=== PATIENT | female | born 1985 | race Caucasian/White ===

== ENCOUNTER 2019-02-28 08:50 | Emergency (ER) | payer OTHER ==
[2019-02-28] MEDS ORDERED: Ondansetron PF 4 MG/2 ML Vial ONE (09:24)
[2019-02-28] MEDS ORDERED: Ketorolac Tromethamine 30 MG/ML VIAL ONE (09:24)
[2019-02-28 09:52] LABS: #Basophils 0.1 thou/uL (0.0-0.2); #Eosinphils 0.2 thou/uL (0.0-0.7); #Lymphocytes 0.9 thou/uL (1.20-3.40); #Monocytes 0.5 thou/uL (0.11-0.59); #Neutrophils 8.3 thou/uL (1.40-6.50); %Basophils 0.6 % (0.0-1.0); %Eosinophils 1.6 % (0.0-10.0); %Lymphocytes 9.3 % (21.0-51.0); %Monocytes 4.8 % (0.0-10.0); %Neutrophils 83.7 % (42.0-75.0); Hemoglobin 13.5 g/dL (12.0-16.0); Mean Corpuscular HGB CONC 31.9 g/dL (32.0-36.0); Mean Corpuscular Hemoglobin 30.9 pg (27.0-31.0); Mean Corpuscular Volume 96.8 fL (78.0-98.0); Mean Platelet Volume 6.3 fL (7.4-10.4); Platelet Count 243 thou/uL (130-400); RBC Distribution Width 12.9 % (11.5-14.5); Red Blood Cell (RBC) Count 4.38 mill/uL (4.20-5.40); White Blood Cell (WBC) Count 9.9 thou/uL (4.8-10.8)
[2019-02-28] MEDS ORDERED: Fentanyl 100 MCG/2 ML VIAL ONE (10:07)
[2019-02-28 10:09] LABS: Bilirubin Negative (Negative); Blood, Urine Large (Negative); Clarity Cloudy (Clear); Glucose, Urine (Dipstick) Negative (Negative); Leukocyte Large (Negative); Nitrite Negative (Negative); Protein, Urine (Dipstick) 100 mg/dL (Neg-Trace); Urobilinogen 0.2 mg/dL (Less than 2)
[2019-02-28 10:14] LABS: Pregnancy Test - Urine (BHCG) Negative (Negative); Pregu Control Background? CLEAR/WHITE (CLR/WHITE); Pregu Control Bar Appear? YES (CONTROL BAR); Specific Gravity 1.015 (1.002-1.036)
[2019-02-28 10:19] LABS: Amphetamine Not Detected (NotDetected); Barbiturates Screen Not Detected (NotDetected); Benzodiazepine Screen Not Detected (NotDetected); Cocaine Metabolite Screen Not Detected (NotDetected); Medtox Control Line Valid? VALID (VALID); Methadone Not Detected (NotDetected); Methamphetamine Not Detected (NotDetected); Opiate Screen Detected (NotDetected); Oxycodone Screen Not Detected (NotDetected); Phencyclidine (PCP) Not Detected (NotDetected); THC/Cannabinoid Screen Not Detected (NotDetected); Tricyclic Screen Not Detected (NotDetected)
[2019-02-28 10:22] LABS: Bacteria/HPF 2+ HPF (None Seen); RBC/HPF 21-50 HPF (0-3); Squamous Epithelial 0-3 HPF (0-3); WBC/HPF Greater Than 50 HPF (0-3); Yeast-Budding 1+ HPF (None Seen)
[2019-02-28 10:31] LABS: BUN (Urea Nitrogen) 10 mg/dL (7.0-18.7); Calc. Creatinine Clearance 0 mL/min (70-130); Carbon Dioxide 15 mmol/L (22-29); Chloride 109 mmol/L (98-107); Estimated GFR-MDRD 89; Glucose 92 mg/dL (70-105); Sodium 138 mmol/L (136-145)
[2019-02-28 10:32] LABS: ALT (SGPT) 19 U/L (8-55); AST (SGOT) 28 U/L (5-34); Albumin 3.9 g/dL (3.5-5.0); Alkaline Phosphatase 56 U/L (40-110); Anion Gap 16 mmol/L (10-20); Bilirubin, Total 0.5 mg/dL (0.2-1.2); Calcium 9.5 mg/dL (7.8-10.44); Globulin 3.2 g/dL (2.4-3.5); Protein, Total 7.1 g/dL (6.0-8.3)
[2019-02-28] MEDS ORDERED: Sulfameth/Trimethoprim DS 800-160mg TAB ONE (10:36)
[2019-02-28] MEDS ORDERED: HYDROcodone/Acetaminophen 10/325 mg Tablet ONE (11:21)
--- NOTE | 2019-02-28 19:19 | CT ---
CT ABDOMEN AND PELVIS WITHOUT CONTRAST: 02/28/[address] was performed for evaluation in this patient. The liver, spleen, pancreas, gallbladder, adrenal glands, kidneys, and abdominal aorta appear normal within the limitations of a noncontrast study. There was no sign of renal calculi or hydronephrosis. No ureteral calculi were seen. There is no distention of bowel. There is no gross bowel wall thickening. No free air of free fluid w as detected. CT of the pelvis shows some mild concentric thickening of the urinary bladder wall. The possibility of cystitis is raised. No adnexal masses are seen. Another finding is a central disc prot rusion at L4-L5 which impinges upon the thecal sac. IMPRESSION: 1. No acute intra-abdominal findings such as urinary tract calculi. 2. Possible mild thickening of the urinary bladder. Consider cystitis. 3. Central disc protrusion at L4-L5. POS: HOME
== END 2019-02-28 12:35 | disposition home or self-care (01) ==
LOC: BURERS 08:50
DX: N30.00 Acute cystitis without hematuria (principal); J45.909 Unspecified asthma, uncomplicated; Z79.899 Other long term (current) drug therapy; Z79.51 Long term (current) use of inhaled steroids
CPT/HCPCS: 36415; 74176; 80053; 80306; 81003; 81015; 81025; 85025; 87077; 87086; 87186; 96361; 96374; 96375; J1885; J2405; J3010

== ENCOUNTER 2019-11-12 19:56 | Emergency (ER) | payer OTHER ==
[2019-11-12] MEDS ORDERED: Ketorolac Tromethamine 30 MG/ML VIAL ONE (20:59)
[2019-11-12] MEDS ORDERED: Dexamethasone 4 MG TAB ONE (21:20)
--- NOTE | 2019-11-13 10:17 | RAD ---
SACRUM AND COCCYX: DATE: 11/12/2019. FINDINGS: Three views indicate no definite fracture. All bones appeared intact. The arcuate lines of the sacr um appear normal. There is a part of the right side of the sacrum that has a slightly acute angle to it just below the bottom of the right SI joint on one view, but this area looks completely normal on the other. I doubt there is a fracture here. The coccyx appears intact. The SI joints appear norm al. IMPRESSION: No definite acute findings. If pain persists, then a CT might be needed for finer detail. POS: HOME
== END 2019-11-12 21:22 | disposition home or self-care (01) ==
LOC: BURERS 19:56
DX: S30.0XXA Contusion of lower back and pelvis, initial encounter (principal); J45.909 Unspecified asthma, uncomplicated; Z79.891 Long term (current) use of opiate analgesic; Z79.899 Other long term (current) drug therapy; W01.198A Fall on same level from slipping, tripping and stumbling with subsequent striking against other object, initial encounter
CPT/HCPCS: 72220; 96372; J1885; J8540

== ENCOUNTER 2020-05-19 22:06 | Emergency (ER) | payer OTHER ==
[2020-05-19 22:52] LABS: #Basophils 0.1 thou/uL (0.0-0.2); #Eosinphils 0.2 thou/uL (0.0-0.7); #Lymphocytes 1.4 thou/uL (1.20-3.40); #Monocytes 0.5 thou/uL (0.11-0.59); #Neutrophils 2.9 thou/uL (1.40-6.50); %Basophils 1.5 % (0.0-1.0); %Eosinophils 4.5 % (0.0-10.0); %Lymphocytes 28.2 % (21.0-51.0); %Neutrophils 56.7 % (42.0-75.0); Hemoglobin 12.1 g/dL (12.0-16.0); Mean Corpuscular HGB CONC 33.4 g/dL (32.0-36.0); Mean Corpuscular Hemoglobin 31.7 pg (27.0-31.0); Mean Corpuscular Volume 94.7 fL (78.0-98.0); Mean Platelet Volume 6.6 fL (7.4-10.4); Platelet Count 236 thou/uL (130-400); RBC Distribution Width 12.4 % (11.5-14.5); Red Blood Cell (RBC) Count 3.82 mill/uL (4.20-5.40)
[2020-05-19 23:06] LABS: ALT (SGPT) 18 U/L (8-55); AST (SGOT) 20 U/L (5-34); Albumin 4.1 g/dL (3.5-5.0); Alkaline Phosphatase 48 U/L (40-110); Anion Gap 14 mmol/L (10-20); BUN (Urea Nitrogen) 10 mg/dL (7.0-18.7); Bilirubin, Total Less than 0.2 mg/dL (0.2-1.2); Calc. Creatinine Clearance 0 mL/min (70-130); Calcium 9.1 mg/dL (7.8-10.44); Carbon Dioxide 22 mmol/L (22-29); Chloride 110 mmol/L (98-107); Glucose 101 mg/dL (70-105); Potassium 4.1 mmol/L (3.5-5.1); Protein, Total 7.1 g/dL (6.0-8.3); Sodium 142 mmol/L (136-145)
== END 2020-05-19 22:09 | disposition home or self-care (01) ==
LOC: BURERS 22:06
DX: R42 Dizziness and giddiness (principal); J45.909 Unspecified asthma, uncomplicated; Z79.51 Long term (current) use of inhaled steroids
CPT/HCPCS: 36415; 80053; 85025; 93005

== ENCOUNTER 2021-01-19 13:48 | Emergency (ER) | payer OTHER | END 2021-01-19 14:50 | disposition home or self-care (01) | LOC: BURERS 13:48 | DX: U07.1 COVID-19 (principal); M94.0 Chondrocostal junction syndrome [Tietze]; J45.909 Unspecified asthma, uncomplicated | CPT/HCPCS: 71045 ==

== ENCOUNTER 2021-01-21 12:27 | Emergency (ER) | payer OTHER | END 2021-01-21 13:10 | disposition home or self-care (01) | LOC: BURERS 12:27 | DX: U07.1 COVID-19 (principal); J06.9 Acute upper respiratory infection, unspecified; J45.909 Unspecified asthma, uncomplicated | CPT/HCPCS: 99283 ==

== ENCOUNTER 2021-04-30 14:35 | Emergency (ER) | payer OTHER, MEDICAID ==
[2021-04-30] MEDS ORDERED: Acetaminophen 500 MG TAB ONE (14:55)
[2021-04-30] MEDS ORDERED: Albuterol Sulfate 2.5 mg/0.5 ml Neb ONE (15:02)
[2021-04-30] MEDS ORDERED: Ketorolac Tromethamine 30 MG/ML VIAL ONE (15:14)
[2021-04-30] MEDS ORDERED: Azithromycin 500 MG VIAL ONE (15:14)
[2021-04-30] MEDS ORDERED: cefTRIAXone\\ROCEPHIN 2 GM VIAL ONE (15:14)
[2021-04-30] MEDS ORDERED: Sodium Chloride 0.9% 200 ML ONE (15:17)
[2021-04-30 15:23] LABS: #Eosinphils 0.1 thou/uL (0.0-0.7); #Monocytes 0.7 thou/uL (0.11-0.59); %Basophils 0.5 % (0.0-1.0); %Eosinophils 1.3 % (0.0-10.0); %Lymphocytes 10.3 % (21.0-51.0); %Monocytes 7.5 % (0.0-10.0); %Neutrophils 80.4 % (42.0-75.0); Hemoglobin 11.7 g/dL (12.0-16.0); Mean Corpuscular HGB CONC 33.5 g/dL (32.0-36.0); Mean Corpuscular Hemoglobin 31.6 pg (27.0-31.0); Mean Corpuscular Volume 94.3 fL (78.0-98.0); Mean Platelet Volume 5.4 fL (7.4-10.4); Platelet Count 257 thou/uL (130-400); RBC Distribution Width 12.1 % (11.5-14.5); Red Blood Cell (RBC) Count 3.69 mill/uL (4.20-5.40); White Blood Cell (WBC) Count 9.9 thou/uL (4.8-10.8)
[2021-04-30 15:37] LABS: ALT (SGPT) 11 U/L (8-55); AST (SGOT) 14 U/L (5-34); Albumin 3.8 g/dL (3.5-5.0); Alkaline Phosphatase 70 U/L (40-110); Anion Gap 14 mmol/L (10-20); BUN (Urea Nitrogen) 8 mg/dL (7.0-18.7); Bilirubin, Total 0.4 mg/dL (0.2-1.2); Calc. Creatinine Clearance 0 mL/min (70-130); Calcium 9.5 mg/dL (7.8-10.44); Carbon Dioxide 22 mmol/L (22-29); Chloride 107 mmol/L (98-107); Glucose 109 mg/dL (70-105); Potassium 3.6 mmol/L (3.5-5.1); Protein, Total 6.8 g/dL (6.0-8.3); Sodium 139 mmol/L (136-145)
[2021-04-30 16:06] LABS: Bilirubin Negative (Negative); Blood, Urine Trace (Negative); Clarity Cloudy (Clear); Glucose, Urine (Dipstick) Negative (Negative); Ketone, Urine Negative (Negative); Leukocyte Negative (Negative); Nitrite Negative (Negative); Protein, Urine (Dipstick) Negative (Neg-Trace); Urobilinogen 0.2 mg/dL (Less than 2)
[2021-04-30 16:10] LABS: Bacteria/HPF 2+ HPF (None Seen); RBC/HPF 0-3 HPF (0-3); WBC/HPF 0-3 HPF (0-3)
[2021-04-30 16:11] LABS: Pregnancy Test - Urine (BHCG) Negative (Negative); Pregu Control Background? CLEAR/WHITE (CLR/WHITE); Pregu Control Bar Appear? YES (CONTROL BAR)
[2021-04-30 16:50] LABS: SARS-CoV-2 NAA Rapid Test DETECTED (NotDetected)
== END 2021-04-30 17:29 | disposition home or self-care (01) ==
LOC: BURERS 14:35
DX: U07.1 COVID-19 (principal); J12.82 Pneumonia due to coronavirus disease 2019; J45.909 Unspecified asthma, uncomplicated; N83.209 Unspecified ovarian cyst, unspecified side; M19.90 Unspecified osteoarthritis, unspecified site; Z79.899 Other long term (current) drug therapy
CPT/HCPCS: 71045; 71275; 80053; 81003; 81015; 81025; 83605; 84484; 85025; 85379; 87040; 93005; 94760; 96365; 96366; 96375; J0456; J0696; J1885; J3490; J7611; U0002

== ENCOUNTER 2022-02-05 17:28 | Emergency (ER) | payer OTHER, SELFPAY ==
[2022-02-05] MEDS ORDERED: Cephalexin 250 MG CAP ONE (18:16)
[2022-02-05] MEDS ORDERED: Sulfameth/Trimethoprim DS 800-160mg TAB ONE (18:16)
== END 2022-02-05 18:23 | disposition home or self-care (01) ==
LOC: BURERS 17:28
DX: K13.0 Diseases of lips (principal); J45.909 Unspecified asthma, uncomplicated; Z79.899 Other long term (current) drug therapy
CPT/HCPCS: 99283

== ENCOUNTER 2022-09-27 11:15 | Emergency (ER) | payer OTHER, MEDICAID ==
[2022-09-27] MEDS ORDERED: Ibuprofen 200 MG TAB ONE (11:37)
== END 2022-09-27 13:25 | disposition home or self-care (01) ==
LOC: BURERS 11:15
DX: S89.92XA Unspecified injury of left lower leg, initial encounter (principal); W54.1XXA Struck by dog, initial encounter